=== PATIENT | male | born 1965 | race African-American/Black ===

== ENCOUNTER 2017-01-14 02:34 | Inpatient (IN) | payer MEDICAID ==
[~2017-01-14] VITALS: Ht 180.3 cm; Wt 103.1 kg
[2017-01-14 04:46] VITALS: BP 124/86
[2017-01-14] MEDS ORDERED: INFLUENZA VIRUS VACCINE QVS 2016-17 (3YR+)/PF 60 MCG/0.5 ML SYRINGE IM ONE (07:00)
[2017-01-14] MEDS ORDERED: MIRT30 PO (08:19)
[2017-01-14 08:22] VITALS: BP 115/86
[2017-01-14] MEDS: NICOTINE 21 MG/24 HOUR PATCH TD SCH (09:43)
[2017-01-14] MEDS: SULFAMETHOX/TRIMETH DS 800-160 MG/TABLET PO SCH ×2 (09:43→17:07)
[2017-01-14] MEDS: CEPHALEXIN MONOHYDRATE 500 MG CAPSULE PO SCH ×4 (09:43→20:20)
[2017-01-14] MEDS: LORazepam 1 MG TABLET PO PRN ×2 (11:45→17:36)
[2017-01-14 16:19] VITALS: BP 129/73
[2017-01-14] MEDS: QUEtiapine FUMARATE 100 MG TABLET PO PRN (18:37)
[2017-01-14] MEDS: OLANZapine 5 MG TABLET PO SCH (20:20)
[2017-01-15 07:46] LABS: BASOPHILS % (AUTO) 0.4 % (0.0-2.0); EOSINOPHILS % (AUTO) 4.6 % (1.0-6.0); HEMATOCRIT 47.9 % (41-53); HEMOGLOBIN 15.5 g/dL (13.5-17.5); LYMPHOCYTES # (AUTO) 2.4 K/uL (1.0-4.8); LYMPHOCYTES % (AUTO) 21.5 % (22.0-44.0); MEAN CORPUSCULAR HEMOGLOBIN 29.2 pg (26.0-34.0); MEAN CORPUSCULAR HGB CONC 32.3 G/dL (31.0-37.0); MEAN CORPUSCULAR VOLUME 90 fL (80-100); MONOCYTES # (AUTO) 0.7 K/uL (0.1-1.0); MONOCYTES % (AUTO) 6.2 % (2.0-9.0); NEUTROPHILS # (AUTO) 7.6 K/uL (1.8-7.7); NEUTROPHILS % (AUTO) 67.3 % (40.0-70.0); PLATELET COUNT (AUTO) 206 K/uL (150-450); RED CELL DISTRIBUTION WIDTH 15.3 % (11.5-14.5); WHITE BLOOD COUNT (AUTO) 11.3 K/uL (4.5-11.0)
[2017-01-15] MEDS: LORazepam 1 MG TABLET PO PRN (08:56)
[2017-01-15] MEDS: NICOTINE 21 MG/24 HOUR PATCH TD SCH (08:56)
[2017-01-15] MEDS: CEPHALEXIN MONOHYDRATE 500 MG CAPSULE PO SCH (08:58)
[2017-01-15] MEDS: SULFAMETHOX/TRIMETH DS 800-160 MG/TABLET PO SCH (08:58)
[2017-01-15] MEDS ORDERED: FLUoxetine HCL 20 MG CAPSULE PO SCH (09:00)
[2017-01-15 13:36] VITALS: BP 111/59
[2017-01-15 16:29] VITALS: BP 100/73
[2017-01-15] MEDS: QUEtiapine FUMARATE 100 MG TABLET PO PRN (20:34)
[2017-01-15] MEDS: OLANZapine 5 MG TABLET PO SCH (20:35)
[2017-01-16 00:05] VITALS: BP 104/66
[2017-01-16] MEDS: LORazepam 1 MG TABLET PO PRN ×2 (07:51→20:22)
[2017-01-16] MEDS: QUEtiapine FUMARATE 100 MG TABLET PO PRN (07:51)
[2017-01-16 08:38] VITALS: BP 125/92
[2017-01-16] MEDS: FLUoxetine HCL 20 MG CAPSULE PO SCH (08:56)
[2017-01-16] MEDS: NICOTINE 21 MG/24 HOUR PATCH TD SCH (08:56)
[2017-01-16 16:07] VITALS: BP 149/90
[2017-01-16 17:00] VITALS: BP 130/82
[2017-01-16] MEDS ORDERED: ACETAMINOPHEN 325 MG TABLET PO PRN (17:15)
[2017-01-16] MEDS: OLANZapine 5 MG TABLET PO SCH (20:22)
[2017-01-16 20:26] VITALS: BP 134/80
[2017-01-17 06:36] VITALS: BP 116/75
[2017-01-17 08:11] VITALS: BP 157/94
[2017-01-17] MEDS: NICOTINE 21 MG/24 HOUR PATCH TD SCH (08:59)
[2017-01-17] MEDS: FLUoxetine HCL 20 MG CAPSULE PO SCH (09:00)
[2017-01-17] MEDS: OLANZapine 5 MG TABLET PO SCH ×2 (09:00→20:28)
[2017-01-17 10:17] VITALS: BP 130/89
[2017-01-17] MEDS: LORazepam 1 MG TABLET PO PRN ×2 (13:52→20:50)
[2017-01-17 16:34] VITALS: BP 133/79
[2017-01-17] MEDS: QUEtiapine FUMARATE 100 MG TABLET PO PRN (20:50)
[2017-01-18 06:28] VITALS: BP 128/87
[2017-01-18] MEDS: NICOTINE 21 MG/24 HOUR PATCH TD SCH (08:52)
[2017-01-18] MEDS: FLUoxetine HCL 20 MG CAPSULE PO SCH (08:52)
[2017-01-18] MEDS: OLANZapine 5 MG TABLET PO SCH ×2 (08:52→21:18)
[2017-01-18 16:09] VITALS: BP 137/85
[2017-01-18] MEDS: LORazepam 1 MG TABLET PO PRN (21:18)
[2017-01-18] MEDS: QUEtiapine FUMARATE 100 MG TABLET PO PRN (21:19)
[2017-01-19 03:57] VITALS: BP 123/61
[2017-01-19 08:47] VITALS: BP 141/75
[2017-01-19] MEDS: FLUoxetine HCL 20 MG CAPSULE PO SCH (09:58)
[2017-01-19] MEDS: NICOTINE 21 MG/24 HOUR PATCH TD SCH (09:58)
[2017-01-19] MEDS: OLANZapine 5 MG TABLET PO SCH ×2 (09:58→20:41)
[2017-01-19 16:10] VITALS: BP 118/72
[2017-01-19] MEDS: QUEtiapine FUMARATE 100 MG TABLET PO PRN (20:41)
[2017-01-19] MEDS: LORazepam 1 MG TABLET PO PRN (20:41)
[2017-01-20 06:54] VITALS: BP 113/63
[2017-01-20] MEDS ORDERED: DiphenhydrAMINE HCL 50 MG/ML VIAL IM ONE (09:15)
[2017-01-20] MEDS: NICOTINE 21 MG/24 HOUR PATCH TD SCH (09:19)
[2017-01-20] MEDS: FLUoxetine HCL 20 MG CAPSULE PO SCH (09:20)
[2017-01-20] MEDS: OLANZapine 5 MG TABLET PO SCH (09:20)
[2017-01-20 09:58] VITALS: BP 118/76
[2017-01-20] MEDS ORDERED: BENZTROPINE MESYLATE 2 MG TABLET PO ONE (11:15)
[2017-01-20] MEDS ORDERED: BENZTROPINE MESYLATE 2 MG TABLET ONE (11:17)
[2017-01-20 16:21] VITALS: BP 152/91
[2017-01-20] MEDS: BENZTROPINE MESYLATE 2 MG TABLET PO SCH (17:00)
[2017-01-20] MEDS ORDERED: FLUO-191 PO (18:50)
[2017-01-20] MEDS ORDERED: LORA1TAB3 PO (18:50)
[2017-01-20] MEDS ORDERED: QUET100T PO (18:50)
[2017-01-20] MEDS ORDERED: BENZ2TAB10 PO (18:50)
[2017-01-20 22:38] VITALS: BP 139/72
[2017-01-20] MEDS: LORazepam 1 MG TABLET PO PRN (22:38)
[2017-01-21 07:02] VITALS: BP 125/80
[2017-01-21] MEDS: NICOTINE 21 MG/24 HOUR PATCH TD SCH (08:40)
[2017-01-21] MEDS: FLUoxetine HCL 20 MG CAPSULE PO SCH (08:40)
[2017-01-21] MEDS: BENZTROPINE MESYLATE 2 MG TABLET PO SCH (08:40)
[2017-01-21 08:45] VITALS: BP 125/81
[2017-01-21 09:51] LABS: ALANINE AMINOTRANSFERASE 60 U/L (12-78); ALBUMIN 3.4 g/dL (3.4-5.0); ANION GAP 6 mmol/L (8-16); ASPARTATE AMINOTRANSFERASE 42 U/L (15-37); BILIRUBIN,TOTAL 0.2 mg/dL (0.1-1.0); CALCIUM, TOTAL 8.6 mg/dL (8.8-10.5); CARBON DIOXIDE 32 mmol/L (22-29); CHLORIDE 107 mmol/L (98-107); CREATININE 1.18 mg/dL (0.60-1.30); GLOMERULAR FILTR. RATE CALC > 60 mL/min (>60); POTASSIUM 4.8 mmol/L (3.5-5.1); SODIUM SERUM 145 mmol/L (136-145); TOTAL PROTEIN, SERUM 7.3 g/dL (6.4-8.2); UREA NITROGEN, BLOOD 17 mg/dL (7-18)
== END 2017-01-21 11:35 | disposition home or self-care (01) | DRG 750 ==
LOC: B2S 03:50 → EDSTATUS 04:39
PROVIDERS: ADMIT Psychiatry & Neurology Psychiatry; ATTEND Psychiatry & Neurology Psychiatry
DX: F25.0 Schizoaffective disorder, bipolar type (principal); R45.851 Suicidal ideations; F14.20 Cocaine dependence, uncomplicated; R13.10 Dysphagia, unspecified; M54.9 Dorsalgia, unspecified; R07.9 Chest pain, unspecified; F15.90 Other stimulant use, unspecified, uncomplicated; R45.87 Impulsiveness; F17.200 Nicotine dependence, unspecified, uncomplicated; K21.9 Gastro-esophageal reflux disease without esophagitis; Z59.0 Homelessness; Z80.42 Family history of malignant neoplasm of prostate; Z82.3 Family history of stroke; Z72.89 Other problems related to lifestyle; Z88.8 Allergy status to other drugs, medicaments and biological substances; Z88.1 Allergy status to other antibiotic agents; Z91.5 Personal history of self-harm; Z79.899 Other long term (current) drug therapy; Z28.21 Immunization not carried out because of patient refusal
CPT/HCPCS: 93005; J1200

== ENCOUNTER 2017-01-20 18:19 | Emergency (ER) | payer MEDICAID ==
[~2017-01-20] VITALS: Ht 177.8 cm; Wt 104.5 kg
[~2017-01-20 18:19] MED LIST: MIRT30 PO
[2017-01-20] MEDS ORDERED: FLUO-191 PO (18:50)
[2017-01-20] MEDS ORDERED: LORA1TAB3 PO (18:50)
[2017-01-20] MEDS ORDERED: BENZ2TAB10 PO (18:50)
[2017-01-20] MEDS ORDERED: QUET100T PO (18:50)
[2017-01-20] MEDS ORDERED: KETOROLAC TROMETHAMINE 60 MG/2 ML VIAL IM ONE (20:15)
[2017-01-20 20:59] VITALS: BP 139/89
== END 2017-01-20 22:11 | disposition home or self-care (01) ==
LOC: EMS 18:20
DX: J02.8 Acute pharyngitis due to other specified organisms (principal); F17.210 Nicotine dependence, cigarettes, uncomplicated; F12.10 Cannabis abuse, uncomplicated; F31.9 Bipolar disorder, unspecified; Z88.1 Allergy status to other antibiotic agents
CPT/HCPCS: 87430; 96372; 99283; J1885

== ENCOUNTER 2017-02-22 23:12 | Emergency (ER) | payer MEDICAID ==
[~2017-02-22] VITALS: Ht 177.8 cm; Wt 120.0 kg
[~2017-02-22 23:12] MED LIST changes: +FLUO-191 PO; -MIRT30 PO
[2017-02-22 23:37] LABS: BASOPHILS # (AUTO) 0.04 K/uL (0.00-0.20); BASOPHILS % (AUTO) 0.3 % (0.0-2.0); EOSINOPHILS # (AUTO) 0.14 K/uL (0.00-0.70); EOSINOPHILS % (AUTO) 1.11 % (1.0-6.0); HEMATOCRIT 45.1 % (41-53); HEMOGLOBIN 14.9 g/dL (13.5-17.5); LYMPHOCYTES # (AUTO) 1.8 K/uL (1.0-4.8); LYMPHOCYTES % (AUTO) 13.8 % (22.0-44.0); MEAN CORPUSCULAR VOLUME 91 fL (80-100); MONOCYTES # (AUTO) 1.1 K/uL (0.1-1.0); MONOCYTES % (AUTO) 8.7 % (2.0-9.0); NEUTROPHILS # (AUTO) 9.7 K/uL (1.8-7.7); NEUTROPHILS % (AUTO) 76.1 % (40.0-70.0); PLATELET COUNT (AUTO) 231 K/uL (150-450); RED BLOOD CELL COUNT(AUTO) 4.96 MIL/uL (4.50-5.90); RED CELL DISTRIBUTION WIDTH 16.6 % (11.5-14.5); WHITE BLOOD COUNT (AUTO) 12.8 K/uL (4.5-11.0)
[2017-02-22 23:42] LABS: INR 1.1 (0.9-1.1); PROTHROMBIN TIME 11.3 SEC (9.4-11.6)
[2017-02-22 23:44] LABS: ANION GAP 10 mmol/L (8-16); CARBON DIOXIDE 26 mmol/L (22-29); CHLORIDE 102 mmol/L (98-107); CREATININE 1.24 mg/dL (0.60-1.30); GLOMERULAR FILTR. RATE CALC > 60 mL/min (>60); POTASSIUM 4.3 mmol/L (3.5-5.1); SODIUM SERUM 138 mmol/L (136-145); UREA NITROGEN, BLOOD 13 mg/dL (7-18)
[2017-02-22] MEDS ORDERED: MORPHINE SULFATE 4 MG/ML SYRINGE IVP ONE (23:45)
[2017-02-22] MEDS ORDERED: LORazepam 2 MG/ML VIAL IVP ONE (23:45)
[2017-02-23 00:10] LABS: ALANINE AMINOTRANSFERASE 72 U/L (12-78); ALBUMIN 4.3 g/dL (3.4-5.0); ASPARTATE AMINOTRANSFERASE 86 U/L (15-37); BILIRUBIN,TOTAL 0.5 mg/dL (0.1-1.0); CREATINE KINASE MB 6.1 ng/mL (0-5); TOTAL PROTEIN, SERUM 7.7 g/dL (6.4-8.2)
[2017-02-23 00:11] LABS: CREATINE KINASE, TOTAL 1594 U/L (39-308)
[2017-02-23 00:25] LABS: B-TYPE NATRIURETIC PEPTIDE 11 pg/mL (0-100)
[2017-02-23 02:42] LABS: APPEARANCE,URINE CLEAR (CLEAR); GLUCOSE, URINE (UA) NEGATIVE (NEGATIVE); KETONES,URINE NEGATIVE (NEGATIVE); LEUKOCYTE ESTERASE ,URINE NEGATIVE (NEGATIVE); OCCULT BLOOD,URINE NEGATIVE (NEGATIVE); PROTEIN,URINE TRACE (NEGATIVE)
[2017-02-23 02:43] LABS: ADD UA MICROSCOPIC NO
[2017-02-23 03:09] VITALS: BP 130/89
== END 2017-02-23 03:10 | disposition home or self-care (01) ==
LOC: EMS 23:14
DX: R07.9 Chest pain, unspecified (principal); F14.10 Cocaine abuse, uncomplicated; F15.10 Other stimulant abuse, uncomplicated; F11.10 Opioid abuse, uncomplicated; F17.210 Nicotine dependence, cigarettes, uncomplicated; F12.90 Cannabis use, unspecified, uncomplicated; Z88.1 Allergy status to other antibiotic agents
CPT/HCPCS: 36415; 71010; 80053; 80307; 81003; 82550; 82553; 83880; 84484; 85025; 85610; 85730; 93005; 96374; 96375; 99285; J2060; J2270

== ENCOUNTER 2017-09-12 20:27 | Emergency (ER) | payer MEDICAID ==
[~2017-09-12] VITALS: Ht 180.3 cm; Wt 118.2 kg
[2017-09-12 21:13] LABS: BASOPHILS % (AUTO) 1.3 % (0.0-2.0); EOSINOPHILS # (AUTO) 0.21 K/uL (0.00-0.70); EOSINOPHILS % (AUTO) 2.79 % (1.0-6.0); HEMATOCRIT 40.5 % (41-53); HEMOGLOBIN 13.6 g/dL (13.5-17.5); LYMPHOCYTES # (AUTO) 2.1 K/uL (1.0-4.8); LYMPHOCYTES % (AUTO) 28.6 % (22.0-44.0); MEAN CORPUSCULAR HEMOGLOBIN 30.5 pg (26.0-34.0); MEAN CORPUSCULAR HGB CONC 33.6 G/dL (31.0-37.0); MEAN CORPUSCULAR VOLUME 91 fL (80-100); MONOCYTES # (AUTO) 0.7 K/uL (0.1-1.0); MONOCYTES % (AUTO) 9.7 % (2.0-9.0); NEUTROPHILS # (AUTO) 4.3 K/uL (1.8-7.7); NEUTROPHILS % (AUTO) 57.7 % (40.0-70.0); PLATELET COUNT (AUTO) 185 K/uL (150-450); RED BLOOD CELL COUNT(AUTO) 4.47 MIL/uL (4.50-5.90); RED CELL DISTRIBUTION WIDTH 14.8 % (11.5-14.5); WHITE BLOOD COUNT (AUTO) 7.4 K/uL (4.5-11.0)
[2017-09-12 21:25] LABS: ANION GAP 4 mmol/L (8-16); CALCIUM, TOTAL 8.8 mg/dL (8.8-10.5); CARBON DIOXIDE 29 mmol/L (22-29); CHLORIDE 106 mmol/L (98-107); CREATININE 0.95 mg/dL (0.60-1.30); GLOMERULAR FILTR. RATE CALC > 60 mL/min (>60); POTASSIUM 3.9 mmol/L (3.5-5.1); SODIUM SERUM 139 mmol/L (136-145); UREA NITROGEN, BLOOD 13 mg/dL (7-18)
[2017-09-12 21:28] LABS: PROTHROMBIN TIME 10.5 SEC (9.4-11.6)
[2017-09-12] MEDS ORDERED: ONDANSETRON HCL 4 MG/2 ML VIAL IVP ONE (21:30)
[2017-09-12] MEDS ORDERED: HYDROmorphone 2 MG/ML SYRINGE IVP ONE ×2 (21:30→22:30)
[2017-09-12 21:41] LABS: B-TYPE NATRIURETIC PEPTIDE < 5 pg/mL (0-100)
[2017-09-12 21:50] LABS: ALANINE AMINOTRANSFERASE 37 U/L (12-78); ALBUMIN 3.5 g/dL (3.4-5.0); ASPARTATE AMINOTRANSFERASE 23 U/L (15-37); BILIRUBIN,TOTAL 0.1 mg/dL (0.1-1.0); CREATINE KINASE, TOTAL 186 U/L (39-308); TOTAL PROTEIN, SERUM 6.6 g/dL (6.4-8.2)
[2017-09-12 21:51] LABS: CREATINE KINASE MB < 0.5 ng/mL (0-5)
[2017-09-12] MEDS ORDERED: BARIUM SULFATE 0.1% SUSPENSION 450 ML BOTTLE PO ONE (22:15)
[2017-09-12] MEDS ORDERED: LORazepam 2 MG/ML VIAL IVP ONE (22:45)
[2017-09-12] MEDS ORDERED: IOVERSOL 350 MG/ML 150 ML VIAL ONE (23:27)
[2017-09-12 23:44] LABS: APPEARANCE,URINE CLEAR (CLEAR); GLUCOSE, URINE (UA) NEGATIVE (NEGATIVE); KETONES,URINE NEGATIVE (NEGATIVE); LEUKOCYTE ESTERASE ,URINE NEGATIVE (NEGATIVE); OCCULT BLOOD,URINE NEGATIVE (NEGATIVE); PH,URINE 5.5 (5.0-8.0); PROTEIN,URINE NEGATIVE (NEGATIVE)
[2017-09-12 23:45] LABS: ADD UA MICROSCOPIC NO
[2017-09-13] MEDS ORDERED: HYDROmorphone 2 MG/ML SYRINGE IVP ONE (00:15)
[2017-09-13] MEDS ORDERED: ONDANSETRON HCL 4 MG/2 ML VIAL IVP ONE (02:45)
[2017-09-13 02:56] LABS: BASOPHILS # (AUTO) 0.06 K/uL (0.00-0.20); BASOPHILS % (AUTO) 0.7 % (0.0-2.0); EOSINOPHILS # (AUTO) 0.06 K/uL (0.00-0.70); EOSINOPHILS % (AUTO) 0.75 % (1.0-6.0); HEMOGLOBIN 14.1 g/dL (13.5-17.5); LYMPHOCYTES # (AUTO) 1.8 K/uL (1.0-4.8); LYMPHOCYTES % (AUTO) 21.3 % (22.0-44.0); MEAN CORPUSCULAR HEMOGLOBIN 30.3 pg (26.0-34.0); MEAN CORPUSCULAR HGB CONC 33.5 G/dL (31.0-37.0); MEAN CORPUSCULAR VOLUME 90 fL (80-100); MONOCYTES # (AUTO) 0.6 K/uL (0.1-1.0); MONOCYTES % (AUTO) 6.7 % (2.0-9.0); NEUTROPHILS # (AUTO) 5.8 K/uL (1.8-7.7); NEUTROPHILS % (AUTO) 70.6 % (40.0-70.0); PLATELET COUNT (AUTO) 189 K/uL (150-450); RED BLOOD CELL COUNT(AUTO) 4.65 MIL/uL (4.50-5.90); RED CELL DISTRIBUTION WIDTH 14.5 % (11.5-14.5); WHITE BLOOD COUNT (AUTO) 8.2 K/uL (4.5-11.0)
[2017-09-13 03:50] VITALS: BP 139/88
== END 2017-09-13 03:53 | disposition home or self-care (01) ==
LOC: EMS 20:29
DX: R10.32 Left lower quadrant pain (principal); F17.210 Nicotine dependence, cigarettes, uncomplicated; F12.90 Cannabis use, unspecified, uncomplicated; F14.90 Cocaine use, unspecified, uncomplicated; Z87.19 Personal history of other diseases of the digestive system; Z88.1 Allergy status to other antibiotic agents
CPT/HCPCS: 36415; 71010; 74177; 80053; 81003; 82550; 82553; 83690; 83880; 84484; 85025; 85610; 85730; 86850; 86900; 86901; 93005; 96374; 96375; 96376; 99285; G0480; J1170 ×2; J2060; J2405 ×2; Q9967; Z7610

== ENCOUNTER 2017-11-09 18:14 | Emergency (ER) | payer MEDICAID ==
[~2017-11-09] VITALS: Ht 180.3 cm; Wt 122.5 kg
[2017-11-09] MEDS ORDERED: QUET100T PO (18:21)
[2017-11-09] MEDS ORDERED: PALI39DI IM (18:21)
[2017-11-09 18:33] LABS: BASOPHILS # (AUTO) 0.01 K/uL (0.00-0.20); BASOPHILS % (AUTO) 0.1 % (0.0-2.0); EOSINOPHILS # (AUTO) 0.17 K/uL (0.00-0.70); EOSINOPHILS % (AUTO) 1.78 % (1.0-6.0); HEMATOCRIT 42.4 % (41-53); HEMOGLOBIN 14.6 g/dL (13.5-17.5); LYMPHOCYTES # (AUTO) 1.7 K/uL (1.0-4.8); LYMPHOCYTES % (AUTO) 17.1 % (22.0-44.0); MEAN CORPUSCULAR HEMOGLOBIN 30.6 pg (26.0-34.0); MEAN CORPUSCULAR HGB CONC 34.4 G/dL (31.0-37.0); MEAN CORPUSCULAR VOLUME 89 fL (80-100); MONOCYTES # (AUTO) 0.5 K/uL (0.1-1.0); MONOCYTES % (AUTO) 5.3 % (2.0-9.0); NEUTROPHILS # (AUTO) 7.4 K/uL (1.8-7.7); NEUTROPHILS % (AUTO) 75.7 % (40.0-70.0); PLATELET COUNT (AUTO) 201 K/uL (150-450); RED BLOOD CELL COUNT(AUTO) 4.77 MIL/uL (4.50-5.90); RED CELL DISTRIBUTION WIDTH 14.9 % (11.5-14.5)
[2017-11-09 18:46] LABS: ANION GAP 3 mmol/L (8-16); CALCIUM, TOTAL 9.3 mg/dL (8.8-10.5); CARBON DIOXIDE 31 mmol/L (22-29); CHLORIDE 107 mmol/L (98-107); CREATININE 1.11 mg/dL (0.60-1.30); GLOMERULAR FILTR. RATE CALC > 60 mL/min (>60); GLUCOSE,RANDOM 111 mg/dL (70-110); POTASSIUM 4.2 mmol/L (3.5-5.1); SODIUM SERUM 141 mmol/L (136-145); UREA NITROGEN, BLOOD 15 mg/dL (7-18)
[2017-11-09 18:52] LABS: ALANINE AMINOTRANSFERASE 41 U/L (12-78); ALBUMIN 3.9 g/dL (3.4-5.0); ALKALINE PHOSPHATASE 102 U/L (46-116); ASPARTATE AMINOTRANSFERASE 20 U/L (15-37); BILIRUBIN,TOTAL 0.2 mg/dL (0.1-1.0); TOTAL PROTEIN, SERUM 7.8 g/dL (6.4-8.2)
[2017-11-09 23:32] VITALS: BP 135/89
== END 2017-11-09 23:58 | disposition home or self-care (01) ==
LOC: EMS 18:15
DX: J06.9 Acute upper respiratory infection, unspecified (principal); R60.9 Edema, unspecified; M79.89 Other specified soft tissue disorders; F17.210 Nicotine dependence, cigarettes, uncomplicated; F12.90 Cannabis use, unspecified, uncomplicated; F11.90 Opioid use, unspecified, uncomplicated; Z88.1 Allergy status to other antibiotic agents
CPT/HCPCS: 93005; 99285

== ENCOUNTER 2018-02-16 02:33 | Emergency (ER) | payer MEDICAID ==
[~2018-02-16] VITALS: Ht 180.3 cm; Wt 100.0 kg
[~2018-02-16 02:33] MED LIST changes: -FLUO-191 PO; +PALI39DI IM; +QUET100T PO
[2018-02-16 03:08] LABS: BASOPHILS % (AUTO) 0.9 % (0.0-2.0); EOSINOPHILS % (AUTO) 0.4 % (1.0-6.0); HEMOGLOBIN 15.9 g/dL (13.5-17.5); LYMPHOCYTES # (AUTO) 1.9 K/uL (1.0-4.8); LYMPHOCYTES % (AUTO) 12.8 % (22.0-44.0); MEAN CORPUSCULAR HEMOGLOBIN 29.8 pg (26.0-34.0); MEAN CORPUSCULAR HGB CONC 33.9 G/dL (31.0-37.0); MEAN CORPUSCULAR VOLUME 88 fL (80-100); MONOCYTES # (AUTO) 1.3 K/uL (0.1-1.0); MONOCYTES % (AUTO) 8.4 % (2.0-9.0); NEUTROPHILS # (AUTO) 11.6 K/uL (1.8-7.7); NEUTROPHILS % (AUTO) 77.5 % (40.0-70.0); RED BLOOD CELL COUNT(AUTO) 5.34 MIL/uL (4.50-5.90); RED CELL DISTRIBUTION WIDTH 15.1 % (11.5-14.5)
[2018-02-16 03:12] LABS: ANION GAP 12 mmol/L (8-16); CALCIUM, TOTAL 10.2 mg/dL (8.8-10.5); CARBON DIOXIDE 29 mmol/L (22-29); CHLORIDE 105 mmol/L (98-107); CREATININE 1.46 mg/dL (0.60-1.30); GLOMERULAR FILTR. RATE CALC > 60 mL/min (>60); GLUCOSE,RANDOM 92 mg/dL (70-110); POTASSIUM 4.1 mmol/L (3.5-5.1); SODIUM SERUM 146 mmol/L (136-145); UREA NITROGEN, BLOOD 17 mg/dL (7-18)
[2018-02-16 03:18] LABS: ALANINE AMINOTRANSFERASE 40 U/L (12-78); ALBUMIN 4.8 g/dL (3.4-5.0); ALKALINE PHOSPHATASE 94 U/L (46-116); ASPARTATE AMINOTRANSFERASE 53 U/L (15-37); BILIRUBIN,TOTAL 0.6 mg/dL (0.1-1.0); TOTAL PROTEIN, SERUM 8.9 g/dL (6.4-8.2)
[2018-02-16 03:33] LABS: PLATELET COUNT (AUTO) 214 K/uL (150-450)
[2018-02-16 03:34] LABS: PLATELET MORPHOLOGY COMMENT GIANT PLTS PRESENT
[2018-02-16 04:40] LABS: AMPHET/METH SCREEN,URINE POSITIVE (NEGATIVE); BARBITURATE SCREEN, URINE NEGATIVE (NEGATIVE); BENZODIAZEPINES SCREEN,URINE NEGATIVE (NEGATIVE); CANNABINOID SCREEN,URINE NEGATIVE (NEGATIVE); COCAINE SCREEN,URINE POSITIVE (NEGATIVE); METHADONE SCREEN, URINE NEGATIVE (NEGATIVE); OPIATE SCREEN,URINE NEGATIVE (NEGATIVE); PHENCYCLIDINE SCREEN,URINE NEGATIVE (NEGATIVE)
[2018-02-16 05:12] VITALS: BP 136/89
== END 2018-02-16 05:25 | disposition home or self-care (01) ==
LOC: EMS 02:34
DX: F24 Shared psychotic disorder (principal); G47.62 Sleep related leg cramps; F19.90 Other psychoactive substance use, unspecified, uncomplicated; F31.9 Bipolar disorder, unspecified; F17.210 Nicotine dependence, cigarettes, uncomplicated; F12.90 Cannabis use, unspecified, uncomplicated; F14.90 Cocaine use, unspecified, uncomplicated; Z88.1 Allergy status to other antibiotic agents
CPT/HCPCS: 36415; 80053; 80307; 85025; 99285; G0480

== ENCOUNTER 2018-06-25 18:00 | Inpatient (IN) | payer MEDICAID ==
[~2018-06-25] VITALS: Ht 172.7 cm; Wt 120.5 kg
[~2018-06-25 18:00] MED LIST changes: +BENZ0.5T44 PO; +DIVA-78 PO; +DOCU250C91 PO; +ESCI10TA PO; +LOSA50TA37 PO; -PALI39DI IM; -QUET100T PO; +QUET200T PO; +WARF10TA23 PO
[2018-06-25 19:33] LABS: BASOPHILS % (AUTO) 0.9 % (0.0-2.0); EOSINOPHILS % (AUTO) 1.4 % (1.0-6.0); HEMATOCRIT 43.2 % (41-53); LYMPHOCYTES # (AUTO) 2.3 K/uL (1.0-4.8); LYMPHOCYTES % (AUTO) 24.7 % (22.0-44.0); MEAN CORPUSCULAR HEMOGLOBIN 30.5 pg (26.0-34.0); MEAN CORPUSCULAR HGB CONC 34.8 G/dL (31.0-37.0); MEAN CORPUSCULAR VOLUME 88 fL (80-100); MONOCYTES # (AUTO) 0.6 K/uL (0.1-1.0); MONOCYTES % (AUTO) 6.9 % (2.0-9.0); NEUTROPHILS # (AUTO) 6.1 K/uL (1.8-7.7); NEUTROPHILS % (AUTO) 66.1 % (40.0-70.0); PLATELET COUNT (AUTO) 195 K/uL (150-450); RED BLOOD CELL COUNT(AUTO) 4.93 MIL/uL (4.50-5.90); RED CELL DISTRIBUTION WIDTH 15.1 % (11.5-14.5)
[2018-06-25 19:44] LABS: ANION GAP 9 mmol/L (8-16); CALCIUM, TOTAL 9.4 mg/dL (8.8-10.5); CARBON DIOXIDE 26 mmol/L (22-29); CHLORIDE 106 mmol/L (98-107); CREATININE 0.83 mg/dL (0.60-1.30); GLOMERULAR FILTR. RATE CALC > 60 mL/min (>60); GLUCOSE,RANDOM 108 mg/dL (70-110); POTASSIUM 4.2 mmol/L (3.5-5.1); SODIUM SERUM 141 mmol/L (136-145); UREA NITROGEN, BLOOD 11 mg/dL (7-18)
[2018-06-25] MEDS ORDERED: MORPHINE SULFATE 4 MG/ML SYRINGE IVP ONE ×2 (19:45→22:45)
[2018-06-25] MEDS ORDERED: SODIUM CHLORIDE 0.9% 1,000 ML IV ONE (19:45)
[2018-06-25] MEDS ORDERED: ONDANSETRON HCL 4 MG/2 ML VIAL IVP ONE (19:45)
[2018-06-25 19:50] LABS: ALANINE AMINOTRANSFERASE 20 U/L (12-78); ALBUMIN 3.9 g/dL (3.4-5.0); ALKALINE PHOSPHATASE 81 U/L (46-116); AMYLASE 58 U/L (25-115); ASPARTATE AMINOTRANSFERASE 9 U/L (15-37); BILIRUBIN,TOTAL 0.2 mg/dL (0.1-1.0); TOTAL PROTEIN, SERUM 7.6 g/dL (6.4-8.2)
[2018-06-25 20:03] LABS: INR 1.6 (0.9-1.1); PROTHROMBIN TIME 16.5 SEC (9.4-11.6)
[2018-06-25 22:24] LABS: EOSINOPHILS % (AUTO) 1.2 % (1.0-6.0); HEMATOCRIT 43.8 % (41-53); LYMPHOCYTES # (AUTO) 2.8 K/uL (1.0-4.8); LYMPHOCYTES % (AUTO) 30.3 % (22.0-44.0); MEAN CORPUSCULAR HEMOGLOBIN 30.2 pg (26.0-34.0); MEAN CORPUSCULAR HGB CONC 34.4 G/dL (31.0-37.0); MEAN CORPUSCULAR VOLUME 88 fL (80-100); MONOCYTES # (AUTO) 0.6 K/uL (0.1-1.0); NEUTROPHILS # (AUTO) 5.7 K/uL (1.8-7.7); NEUTROPHILS % (AUTO) 61.5 % (40.0-70.0); PLATELET COUNT (AUTO) 198 K/uL (150-450); RED BLOOD CELL COUNT(AUTO) 4.98 MIL/uL (4.50-5.90); RED CELL DISTRIBUTION WIDTH 14.8 % (11.5-14.5)
[2018-06-25] MEDS ORDERED: QUEtiapine FUMARATE 100 MG TABLET PO ONE (22:45)
[2018-06-25] MEDS ORDERED: MORPHINE SULFATE 4 MG/ML SYRINGE IVP PRN (23:00)
[2018-06-25] MEDS ORDERED: 0.9% SODIUM CHLORIDE 10 ML SYRINGE IVP PRN (23:00)
[2018-06-26 09:41] VITALS: BP 128/85
[2018-06-26 11:38] VITALS: BP 119/75
[2018-06-26] MEDS ORDERED: ONDANSETRON HCL 4 MG/2 ML VIAL IVP PRN (13:30)
[2018-06-26 14:09] LABS: HEMATOCRIT 44.8 % (41-53); HEMOGLOBIN 15.1 g/dL (13.5-17.5)
[2018-06-26] MEDS: BENZTROPINE MESYLATE 0.5 MG TABLET PO SCH ×2 (14:38→19:55)
[2018-06-26] MEDS: PANTOPRAZOLE SODIUM 40 MG/VIAL IVP SCH (14:38)
[2018-06-26] MEDS: ESCITALOPRAM OXALATE 10 MG TABLET PO SCH (14:38)
[2018-06-26] MEDS: LOSARTAN POTASSIUM 50 MG TABLET PO SCH (14:38)
[2018-06-26] MEDS: MORPHINE SULFATE 2 MG/ML SYRINGE IVP PRN ×2 (14:38→18:50)
[2018-06-26 16:54] VITALS: BP 115/72
[2018-06-26] MEDS: QUEtiapine FUMARATE 200 MG TABLET PO SCH (19:55)
[2018-06-26] MEDS: ZOLPIDEM TARTRATE 5 MG TABLET PO PRN (19:55)
[2018-06-26] MEDS: DIVALPROEX SODIUM 500 MG DR TABLET PO SCH (19:55)
[2018-06-26 19:56] VITALS: BP 103/68
[2018-06-26 21:31] LABS: HEMATOCRIT 41.8 % (41-53); HEMOGLOBIN 14.3 g/dL (13.5-17.5)
[2018-06-26 23:22] VITALS: BP 104/67
[2018-06-27] VITALS (7 sets, daily range): BP systolic 104–127; BP diastolic 68–80
[2018-06-27 06:14] LABS: BASOPHILS % (AUTO) 0.3 % (0.0-2.0); EOSINOPHILS % (AUTO) 2.6 % (1.0-6.0); HEMATOCRIT 43.6 % (41-53); HEMOGLOBIN 14.6 g/dL (13.5-17.5); LYMPHOCYTES # (AUTO) 2.4 K/uL (1.0-4.8); LYMPHOCYTES % (AUTO) 29.9 % (22.0-44.0); MEAN CORPUSCULAR HEMOGLOBIN 30.3 pg (26.0-34.0); MEAN CORPUSCULAR HGB CONC 33.5 G/dL (31.0-37.0); MEAN CORPUSCULAR VOLUME 90 fL (80-100); MONOCYTES # (AUTO) 0.6 K/uL (0.1-1.0); MONOCYTES % (AUTO) 7.4 % (2.0-9.0); NEUTROPHILS # (AUTO) 4.8 K/uL (1.8-7.7); NEUTROPHILS % (AUTO) 59.8 % (40.0-70.0); PLATELET COUNT (AUTO) 180 K/uL (150-450); RED BLOOD CELL COUNT(AUTO) 4.83 MIL/uL (4.50-5.90); RED CELL DISTRIBUTION WIDTH 14.7 % (11.5-14.5)
[2018-06-27 06:21] LABS: ANION GAP 6 mmol/L (8-16); CALCIUM, TOTAL 8.6 mg/dL (8.8-10.5); CARBON DIOXIDE 29 mmol/L (22-29); CHLORIDE 104 mmol/L (98-107); CREATININE 0.99 mg/dL (0.60-1.30); GLOMERULAR FILTR. RATE CALC > 60 mL/min (>60); GLUCOSE,RANDOM 94 mg/dL (70-110); POTASSIUM 4.3 mmol/L (3.5-5.1); SODIUM SERUM 139 mmol/L (136-145); UREA NITROGEN, BLOOD 13 mg/dL (7-18)
[2018-06-27 06:22] LABS: INR 1.3 (0.9-1.1)
[2018-06-27] MEDS: LOSARTAN POTASSIUM 50 MG TABLET PO SCH (09:00)
[2018-06-27] MEDS: BENZTROPINE MESYLATE 0.5 MG TABLET PO SCH ×2 (09:08→20:19)
[2018-06-27] MEDS: MORPHINE SULFATE 2 MG/ML SYRINGE IVP PRN ×3 (09:08→17:27)
[2018-06-27] MEDS: PANTOPRAZOLE SODIUM 40 MG/VIAL IVP SCH (09:08)
[2018-06-27] MEDS: ESCITALOPRAM OXALATE 10 MG TABLET PO SCH (09:08)
[2018-06-27 13:23] LABS: HEMATOCRIT 43.8 % (41-53); HEMOGLOBIN 14.9 g/dL (13.5-17.5)
[2018-06-27] MEDS: DIVALPROEX SODIUM 500 MG DR TABLET PO SCH (20:19)
[2018-06-27] MEDS: ZOLPIDEM TARTRATE 5 MG TABLET PO PRN (20:19)
[2018-06-27] MEDS: APIXABAN 5 MG TABLET PO SCH (20:19)
[2018-06-27] MEDS: QUEtiapine FUMARATE 200 MG TABLET PO SCH (20:22)
[2018-06-27 21:17] LABS: HEMATOCRIT 41.4 % (41-53)
[2018-06-28] MEDS: MORPHINE SULFATE 2 MG/ML SYRINGE IVP PRN ×2 (01:36→09:52)
[2018-06-28 04:38] VITALS: BP 102/68
[2018-06-28 06:36] LABS: BASOPHILS % (AUTO) 0.4 % (0.0-2.0); EOSINOPHILS % (AUTO) 2.7 % (1.0-6.0); HEMATOCRIT 41.1 % (41-53); LYMPHOCYTES # (AUTO) 2.7 K/uL (1.0-4.8); LYMPHOCYTES % (AUTO) 35.4 % (22.0-44.0); MEAN CORPUSCULAR HEMOGLOBIN 30.1 pg (26.0-34.0); MEAN CORPUSCULAR VOLUME 88 fL (80-100); MONOCYTES # (AUTO) 0.5 K/uL (0.1-1.0); MONOCYTES % (AUTO) 7.2 % (2.0-9.0); NEUTROPHILS # (AUTO) 4.1 K/uL (1.8-7.7); NEUTROPHILS % (AUTO) 54.3 % (40.0-70.0); PLATELET COUNT (AUTO) 180 K/uL (150-450); RED BLOOD CELL COUNT(AUTO) 4.65 MIL/uL (4.50-5.90); RED CELL DISTRIBUTION WIDTH 14.6 % (11.5-14.5)
[2018-06-28 06:46] LABS: ANION GAP 8 mmol/L (8-16); CALCIUM, TOTAL 8.6 mg/dL (8.8-10.5); CARBON DIOXIDE 28 mmol/L (22-29); CHLORIDE 105 mmol/L (98-107); CREATININE 0.96 mg/dL (0.60-1.30); GLOMERULAR FILTR. RATE CALC > 60 mL/min (>60); GLUCOSE,RANDOM 89 mg/dL (70-110); POTASSIUM 4.3 mmol/L (3.5-5.1); SODIUM SERUM 141 mmol/L (136-145); UREA NITROGEN, BLOOD 16 mg/dL (7-18)
[2018-06-28 07:46] VITALS: BP 86/67
[2018-06-28] MEDS: LOSARTAN POTASSIUM 50 MG TABLET PO SCH (09:12)
[2018-06-28] MEDS: APIXABAN 5 MG TABLET PO SCH (09:12)
[2018-06-28] MEDS: PANTOPRAZOLE SODIUM 40 MG/VIAL IVP SCH (09:12)
[2018-06-28] MEDS: ESCITALOPRAM OXALATE 10 MG TABLET PO SCH (09:12)
[2018-06-28] MEDS: BENZTROPINE MESYLATE 0.5 MG TABLET PO SCH (09:12)
[2018-06-28] MEDS ORDERED: APIX5TAB PO (11:00)
[2018-06-28 11:45] VITALS: BP 108/70
[2018-06-28 15:23] VITALS: BP 122/80
[2018-06-29] MEDS ORDERED: ASPI81 PO (22:02)
[2018-06-29] MEDS ORDERED: SIMV-261 PO (22:02)
== END 2018-06-28 16:35 | disposition home or self-care (01) | DRG 254 ==
LOC: EMS 18:01 → 5N 06-26 01:32
PROVIDERS: ADMIT Family Medicine; ATTEND Family Medicine
DX: K92.1 Melena (principal); I80.01 Phlebitis and thrombophlebitis of superficial vessels of right lower extremity; I10 Essential (primary) hypertension; K42.9 Umbilical hernia without obstruction or gangrene; F17.210 Nicotine dependence, cigarettes, uncomplicated; F31.9 Bipolar disorder, unspecified; F10.20 Alcohol dependence, uncomplicated; Z79.01 Long term (current) use of anticoagulants; E66.9 Obesity, unspecified; Z68.41 Body mass index [BMI] 40.0-44.9, adult; Z88.1 Allergy status to other antibiotic agents; Z79.899 Other long term (current) drug therapy; Z90.49 Acquired absence of other specified parts of digestive tract
CPT/HCPCS: 74176; 82270; 82271; 83605; 83735; 85014; 85018; 86850; 86900; 86901; 93005; 93970; 96374; 96375; 96376; 99285; C9113; J2270; J2405; J7030

== ENCOUNTER 2018-06-29 21:41 | Inpatient (IN) | payer MEDICAID ==
[~2018-06-29] VITALS: Ht 177.8 cm; Wt 120.6 kg
[~2018-06-29 21:41] MED LIST changes: +APIX5TAB PO; -WARF10TA23 PO
[2018-06-29] MEDS ORDERED: ASPI81 PO (22:02)
[2018-06-29] MEDS ORDERED: SIMV-261 PO (22:02)
[2018-06-29 22:30] LABS: BASOPHILS % (AUTO) 0.9 % (0.0-2.0); HEMATOCRIT 41.2 % (41-53); HEMOGLOBIN 14.3 g/dL (13.5-17.5); LYMPHOCYTES # (AUTO) 2.4 K/uL (1.0-4.8); LYMPHOCYTES % (AUTO) 27.2 % (22.0-44.0); MEAN CORPUSCULAR HEMOGLOBIN 30.6 pg (26.0-34.0); MEAN CORPUSCULAR HGB CONC 34.8 G/dL (31.0-37.0); MEAN CORPUSCULAR VOLUME 88 fL (80-100); MONOCYTES # (AUTO) 0.7 K/uL (0.1-1.0); MONOCYTES % (AUTO) 8.2 % (2.0-9.0); NEUTROPHILS # (AUTO) 5.5 K/uL (1.8-7.7); NEUTROPHILS % (AUTO) 61.7 % (40.0-70.0); PLATELET COUNT (AUTO) 183 K/uL (150-450); RED BLOOD CELL COUNT(AUTO) 4.69 MIL/uL (4.50-5.90); RED CELL DISTRIBUTION WIDTH 14.3 % (11.5-14.5)
[2018-06-29 22:42] LABS: ANION GAP 6 mmol/L (8-16); CALCIUM, TOTAL 8.9 mg/dL (8.8-10.5); CARBON DIOXIDE 29 mmol/L (22-29); CHLORIDE 105 mmol/L (98-107); CREATININE 0.86 mg/dL (0.60-1.30); GLOMERULAR FILTR. RATE CALC > 60 mL/min (>60); GLUCOSE,RANDOM 109 mg/dL (70-110); PROTHROMBIN TIME 10.8 SEC (9.4-11.6); SODIUM SERUM 140 mmol/L (136-145); UREA NITROGEN, BLOOD 14 mg/dL (7-18)
[2018-06-29 22:56] LABS: B-TYPE NATRIURETIC PEPTIDE 6 pg/mL (0-100)
[2018-06-29 23:06] LABS: ALANINE AMINOTRANSFERASE 26 U/L (12-78); ALBUMIN 3.8 g/dL (3.4-5.0); ALKALINE PHOSPHATASE 78 U/L (46-116); ASPARTATE AMINOTRANSFERASE 21 U/L (15-37); BILIRUBIN,TOTAL 0.3 mg/dL (0.1-1.0); CREATINE KINASE MB 1.1 ng/mL (0-5); CREATINE KINASE, TOTAL 225 U/L (39-308); LIPASE 174 U/L (73-393); TOTAL PROTEIN, SERUM 7.5 g/dL (6.4-8.2); VALPROIC ACID 11 mcg/mL (50-100)
[2018-06-29] MEDS ORDERED: IOVERSOL 350 MG/ML 150 ML VIAL ONE (23:24)
[2018-06-29] MEDS ORDERED: SODIUM CHLORIDE 0.9% 100 ML ONE (23:24)
[2018-06-29] MEDS ORDERED: ACETAMINOPHEN 325 MG TABLET PO ONE (23:45)
[2018-06-29] MEDS ORDERED: MORPHINE SULFATE 4 MG/ML SYRINGE IVP ONE (23:45)
[2018-06-30] MEDS ORDERED: 0.9% SODIUM CHLORIDE 10 ML SYRINGE IVP PRN ×2 (01:45→10:45)
[2018-06-30] MEDS ORDERED: PANTOPRAZOLE SODIUM 40 MG/VIAL IVP ONE (01:45)
[2018-06-30] MEDS ORDERED: ONDANSETRON HCL 4 MG/2 ML VIAL IVP PRN ×2 (01:45→10:45)
[2018-06-30 01:48] LABS: APPEARANCE,URINE CLEAR (CLEAR); BILIRUBIN,URINE NEGATIVE (NEGATIVE); GLUCOSE, URINE (UA) NEGATIVE (NEGATIVE); KETONES,URINE NEGATIVE (NEGATIVE); LEUKOCYTE ESTERASE ,URINE NEGATIVE (NEGATIVE); NITRATE,URINE NEGATIVE (NEGATIVE); OCCULT BLOOD,URINE NEGATIVE (NEGATIVE); PROTEIN,URINE NEGATIVE (NEGATIVE)
[2018-06-30] MEDS ORDERED: MORPHINE SULFATE 2 MG/ML SYRINGE IVP ONE (02:30)
[2018-06-30 03:01] VITALS: BP 144/88
[2018-06-30 08:18] VITALS: BP 124/82
[2018-06-30] MEDS: ACETAMINOPHEN 325 MG TABLET PO PRN ×3 (09:00→18:21)
[2018-06-30] MEDS ORDERED: ZOLPIDEM TARTRATE 5 MG TABLET PO PRN (10:45)
[2018-06-30 10:55] LABS: HEMATOCRIT 41.8 % (41-53); HEMOGLOBIN 14.4 g/dL (13.5-17.5)
[2018-06-30 11:32] VITALS: BP 120/77
[2018-06-30] MEDS: PANTOPRAZOLE SODIUM 40 MG/VIAL IVP SCH (11:48)
[2018-06-30 15:00] VITALS: BP 95/61
[2018-06-30] MEDS: ESCITALOPRAM OXALATE 10 MG TABLET PO SCH (15:29)
[2018-06-30 18:53] LABS: HEMATOCRIT 42.1 % (41-53); HEMOGLOBIN 14.3 g/dL (13.5-17.5)
[2018-06-30] MEDS: DIVALPROEX SODIUM 500 MG DR TABLET PO SCH (19:53)
[2018-06-30] MEDS: QUEtiapine FUMARATE 200 MG TABLET PO SCH (19:53)
[2018-06-30 20:17] VITALS: BP 126/82
[2018-06-30 23:13] VITALS: BP 119/71
[2018-07-01 03:28] LABS: HEMATOCRIT 42.3 % (41-53); HEMOGLOBIN 14.4 g/dL (13.5-17.5)
[2018-07-01 04:37] VITALS: BP 116/74
[2018-07-01 05:10] LABS: AMPHET/METH SCREEN,URINE NEGATIVE (NEGATIVE); BARBITURATE SCREEN, URINE NEGATIVE (NEGATIVE); BENZODIAZEPINES SCREEN,URINE NEGATIVE (NEGATIVE); CANNABINOID SCREEN,URINE NEGATIVE (NEGATIVE); COCAINE SCREEN,URINE NEGATIVE (NEGATIVE); METHADONE SCREEN, URINE NEGATIVE (NEGATIVE); OPIATE SCREEN,URINE POSITIVE (NEGATIVE)
[2018-07-01 05:11] LABS: PHENCYCLIDINE SCREEN,URINE NEGATIVE (NEGATIVE)
[2018-07-01 07:29] LABS: BASOPHILS % (AUTO) 0.6 % (0.0-2.0); EOSINOPHILS % (AUTO) 2.5 % (1.0-6.0); HEMATOCRIT 42.9 % (41-53); HEMOGLOBIN 14.8 g/dL (13.5-17.5); LYMPHOCYTES # (AUTO) 2.2 K/uL (1.0-4.8); LYMPHOCYTES % (AUTO) 28.5 % (22.0-44.0); MEAN CORPUSCULAR HEMOGLOBIN 30.8 pg (26.0-34.0); MEAN CORPUSCULAR HGB CONC 34.6 G/dL (31.0-37.0); MEAN CORPUSCULAR VOLUME 89 fL (80-100); MONOCYTES # (AUTO) 0.7 K/uL (0.1-1.0); MONOCYTES % (AUTO) 8.4 % (2.0-9.0); NEUTROPHILS # (AUTO) 4.7 K/uL (1.8-7.7); PLATELET COUNT (AUTO) 181 K/uL (150-450); RED BLOOD CELL COUNT(AUTO) 4.82 MIL/uL (4.50-5.90); RED CELL DISTRIBUTION WIDTH 14.2 % (11.5-14.5)
[2018-07-01 07:55] LABS: ALANINE AMINOTRANSFERASE 25 U/L (12-78); ALBUMIN 3.4 g/dL (3.4-5.0); ALKALINE PHOSPHATASE 69 U/L (46-116); ANION GAP 7 mmol/L (8-16); ASPARTATE AMINOTRANSFERASE 25 U/L (15-37); BILIRUBIN,TOTAL 0.5 mg/dL (0.1-1.0); CALCIUM, TOTAL 8.8 mg/dL (8.8-10.5); CARBON DIOXIDE 28 mmol/L (22-29); CHLORIDE 105 mmol/L (98-107); CREATININE 0.98 mg/dL (0.60-1.30); GLOMERULAR FILTR. RATE CALC > 60 mL/min (>60); GLUCOSE,RANDOM 101 mg/dL (70-110); POTASSIUM 4.2 mmol/L (3.5-5.1); SODIUM SERUM 140 mmol/L (136-145); TOTAL PROTEIN, SERUM 7.1 g/dL (6.4-8.2); UREA NITROGEN, BLOOD 11 mg/dL (7-18)
[2018-07-01] MEDS: PANTOPRAZOLE SODIUM 40 MG/VIAL IVP SCH (08:14)
[2018-07-01] MEDS: ESCITALOPRAM OXALATE 10 MG TABLET PO SCH (08:14)
[2018-07-01 08:19] VITALS: BP 146/52
[2018-07-01] MEDS ORDERED: PEG 3350/NA SULF,BICARB,CL/KCL 4000 ML SOLUTION PO ONE (10:00)
[2018-07-01] MEDS: ACETAMINOPHEN 325 MG TABLET PO PRN (11:20)
[2018-07-01 11:53] VITALS: BP 125/71
[2018-07-01 15:22] LABS: HEMATOCRIT 42.8 % (41-53); HEMOGLOBIN 14.7 g/dL (13.5-17.5)
[2018-07-01 15:48] VITALS: BP 130/85
[2018-07-01] MEDS: QUEtiapine FUMARATE 200 MG TABLET PO SCH (20:03)
[2018-07-01] MEDS: DIVALPROEX SODIUM 500 MG DR TABLET PO SCH (20:04)
[2018-07-01 20:37] VITALS: BP 131/62
[2018-07-02 00:06] VITALS: BP 128/90
[2018-07-02 00:51] LABS: HEMATOCRIT 43.6 % (41-53); HEMOGLOBIN 14.9 g/dL (13.5-17.5)
[2018-07-02 04:00] VITALS: BP 112/51
[2018-07-02] MEDS ORDERED: SODIUM CHLORIDE 0.9% 250 ML IV ONE (06:00)
[2018-07-02] MEDS ORDERED: SODIUM CHLORIDE 0.9% 1,000 ML IV ONE ×2 (06:30→06:34)
[2018-07-02 06:46] LABS: BASOPHILS % (AUTO) 0.3 % (0.0-2.0); EOSINOPHILS % (AUTO) 1.1 % (1.0-6.0); HEMATOCRIT 41.4 % (41-53); HEMOGLOBIN 14.3 g/dL (13.5-17.5); LYMPHOCYTES # (AUTO) 2.2 K/uL (1.0-4.8); LYMPHOCYTES % (AUTO) 26.4 % (22.0-44.0); MEAN CORPUSCULAR HEMOGLOBIN 30.4 pg (26.0-34.0); MEAN CORPUSCULAR HGB CONC 34.4 G/dL (31.0-37.0); MEAN CORPUSCULAR VOLUME 88 fL (80-100); MONOCYTES # (AUTO) 0.5 K/uL (0.1-1.0); MONOCYTES % (AUTO) 6.3 % (2.0-9.0); NEUTROPHILS # (AUTO) 5.5 K/uL (1.8-7.7); NEUTROPHILS % (AUTO) 65.9 % (40.0-70.0); PLATELET COUNT (AUTO) 186 K/uL (150-450); RED CELL DISTRIBUTION WIDTH 14.2 % (11.5-14.5)
[2018-07-02 06:59] LABS: ANION GAP 8 mmol/L (8-16); CALCIUM, TOTAL 8.7 mg/dL (8.8-10.5); CARBON DIOXIDE 28 mmol/L (22-29); CHLORIDE 105 mmol/L (98-107); CREATININE 0.96 mg/dL (0.60-1.30); GLOMERULAR FILTR. RATE CALC > 60 mL/min (>60); GLUCOSE,RANDOM 97 mg/dL (70-110); POTASSIUM 4.2 mmol/L (3.5-5.1); SODIUM SERUM 141 mmol/L (136-145); UREA NITROGEN, BLOOD 9 mg/dL (7-18)
[2018-07-02] MEDS ORDERED: FentaNYL CITRATE-PF 100 MCG/2 ML VIAL ONE (07:06)
[2018-07-02] MEDS ORDERED: MIDAZOLAM HCL 5 MG/ML VIAL ONE (07:07)
[2018-07-02 08:48] VITALS: BP 132/74
[2018-07-02] MEDS: PANTOPRAZOLE SODIUM 40 MG/VIAL IVP SCH (10:13)
[2018-07-02] MEDS: ESCITALOPRAM OXALATE 10 MG TABLET PO SCH (10:14)
[2018-07-02] MEDS: ACETAMINOPHEN 325 MG TABLET PO PRN (10:14)
[2018-07-02 11:06] VITALS: BP 127/76
[2018-07-02 13:32] LABS: HEMATOCRIT 42.3 % (41-53); HEMOGLOBIN 14.5 g/dL (13.5-17.5)
[2018-07-02] MEDS ORDERED: APIX5TAB PO (14:14)
[2018-07-02 15:18] VITALS: BP 125/74
[2018-07-02] MEDS ORDERED: PROPOFOL 1% 20 ML VIAL IVP ONE (15:45)
== END 2018-07-02 15:46 | disposition home or self-care (01) | DRG 241 ==
LOC: EMS 21:42 → 6N 06-30 02:00 → 4E 07-02 07:34
PROVIDERS: ADMIT Internal Medicine; ATTEND Internal Medicine
PROC: 0DJD8ZZ Inspection of Lower Intestinal Tract, Via Natural or Artificial Opening Endoscopic (ICD-10-PCS; 2018-07-02)
PROC: 0DB68ZX Excision of Stomach, Via Natural or Artificial Opening Endoscopic, Diagnostic (ICD-10-PCS; principal; 2018-07-02 07:30)
DX: K29.71 Gastritis, unspecified, with bleeding (principal); F10.20 Alcohol dependence, uncomplicated; K64.0 First degree hemorrhoids; I10 Essential (primary) hypertension; F31.9 Bipolar disorder, unspecified; F17.210 Nicotine dependence, cigarettes, uncomplicated; Z86.718 Personal history of other venous thrombosis and embolism; Z88.1 Allergy status to other antibiotic agents; Z79.01 Long term (current) use of anticoagulants; Z79.82 Long term (current) use of aspirin; Z90.49 Acquired absence of other specified parts of digestive tract
CPT/HCPCS: 74177; 80307; 82270; 82271; 83735; 85014; 85018; 87081; 88305; 88312; 93005; 96374; 96375; 99285; C9113; J2250; J2270; J2405; J2704; J3010; J7030; J7050

== ENCOUNTER 2019-05-31 19:06 | Emergency (ER) | payer MEDICAID ==
[~2019-05-31] VITALS: Ht 177.8 cm; Wt 100.0 kg
[~2019-05-31 19:06] MED LIST changes: +ASPI81 PO; -LOSA50TA37 PO; +LOSA50TA64 PO; +SIMV-261 PO
[2019-05-31] MEDS ORDERED: VENL25TA47 PO (19:34)
[2019-05-31 19:56] LABS: BASOPHILS % (AUTO) 0.7 % (0.0-2.0); HEMATOCRIT 40.8 % (41-53); HEMOGLOBIN 13.2 g/dL (13.5-17.5); LYMPHOCYTES # (AUTO) 2.5 K/uL (1.0-4.8); LYMPHOCYTES % (AUTO) 30.6 % (22.0-44.0); MEAN CORPUSCULAR HEMOGLOBIN 29.7 pg (26.0-34.0); MEAN CORPUSCULAR HGB CONC 32.3 G/dL (31.0-37.0); MEAN CORPUSCULAR VOLUME 92 fL (80-100); MONOCYTES # (AUTO) 0.5 K/uL (0.1-1.0); MONOCYTES % (AUTO) 6.2 % (2.0-9.0); NEUTROPHILS # (AUTO) 4.8 K/uL (1.8-7.7); NEUTROPHILS % (AUTO) 58.5 % (40.0-70.0); PLATELET COUNT (AUTO) 209 K/uL (150-450); RED BLOOD CELL COUNT(AUTO) 4.44 MIL/uL (4.50-5.90); RED CELL DISTRIBUTION WIDTH 14.9 % (11.5-14.5)
[2019-05-31 20:06] LABS: ANION GAP 7 mmol/L (8-16); CALCIUM, TOTAL 9.1 mg/dL (8.8-10.5); CARBON DIOXIDE 28 mmol/L (22-29); CHLORIDE 110 mmol/L (98-107); CREATININE 0.89 mg/dL (0.60-1.30); GLOMERULAR FILTR. RATE CALC > 60 mL/min (>60); GLUCOSE,RANDOM 78 mg/dL (70-110); POTASSIUM 3.7 mmol/L (3.5-5.1); SODIUM SERUM 145 mmol/L (136-145); UREA NITROGEN, BLOOD 8 mg/dL (7-18)
[2019-05-31 20:22] LABS: B-TYPE NATRIURETIC PEPTIDE 6 pg/mL (0-100)
[2019-05-31] MEDS ORDERED: ACETAMINOPHEN 500 MG TABLET PO ONE (20:30)
[2019-05-31 20:31] LABS: ALANINE AMINOTRANSFERASE 18 U/L (12-78); ALBUMIN 2.9 g/dL (3.4-5.0); ALKALINE PHOSPHATASE 86 U/L (46-116); ASPARTATE AMINOTRANSFERASE 11 U/L (15-37); BILIRUBIN,TOTAL 0.1 mg/dL (0.1-1.0); CREATINE KINASE, TOTAL ONLY 92 U/L (39-308); TOTAL PROTEIN, SERUM 6.2 g/dL (6.4-8.2)
[2019-05-31 21:01] LABS: PROTHROMBIN TIME 10.3 SEC (9.4-11.6)
[2019-05-31 21:25] LABS: APPEARANCE,URINE CLEAR (CLEAR); GLUCOSE, URINE (UA) NEGATIVE (NEGATIVE); KETONES,URINE TRACE mg/dL (NEGATIVE); LEUKOCYTE ESTERASE ,URINE NEGATIVE (NEGATIVE); NITRATE,URINE NEGATIVE (NEGATIVE); OCCULT BLOOD,URINE NEGATIVE (NEGATIVE); PH,URINE 5.5 (5.0-8.0); PROTEIN,URINE NEGATIVE (NEGATIVE)
[2019-05-31 21:28] LABS: AMPHET/METH SCREEN,URINE POSITIVE (NEGATIVE); BARBITURATE SCREEN, URINE NEGATIVE (NEGATIVE); BENZODIAZEPINES SCREEN,URINE NEGATIVE (NEGATIVE); BILIRUBIN,URINE PRELIM. POSITIVE (NEGATIVE); CANNABINOID SCREEN,URINE NEGATIVE (NEGATIVE); COCAINE SCREEN,URINE NEGATIVE (NEGATIVE); METHADONE SCREEN, URINE NEGATIVE (NEGATIVE); OPIATE SCREEN,URINE NEGATIVE (NEGATIVE)
[2019-05-31 21:29] LABS: PHENCYCLIDINE SCREEN,URINE NEGATIVE (NEGATIVE)
[2019-05-31 21:54] LABS: RBC,URINE None Seen /HPF (0-2); WBC,URINE 0-2 /HPF (0-5)
[2019-05-31 21:55] LABS: BACTERIA,URINE Rare /HPF (None Seen); CALCIUM OXALATE CRYSTALS,UR Many /LPF (None Seen); SQUAMOUS EPITHELIAL CELL,UR None Seen /LPF (None Seen)
[2019-05-31 22:41] VITALS: BP 130/78
== END 2019-05-31 22:55 | disposition home or self-care (01) ==
LOC: EMS 19:07
DX: R07.89 Other chest pain (principal); F41.9 Anxiety disorder, unspecified; F15.10 Other stimulant abuse, uncomplicated; R11.0 Nausea; F31.9 Bipolar disorder, unspecified; I10 Essential (primary) hypertension; F17.210 Nicotine dependence, cigarettes, uncomplicated; Z88.1 Allergy status to other antibiotic agents; Z79.82 Long term (current) use of aspirin
CPT/HCPCS: 36415; 71045; 80053; 80307; 81001; 82550; 83880; 84484; 85025; 85610; 85730; 93005; 99285; G0480

== ENCOUNTER 2021-01-21 17:41 | Emergency (ER) | payer MEDICAID ==
[~2021-01-21] VITALS: Ht 180.3 cm; Wt 113.6 kg
[~2021-01-21 17:41] MED LIST changes: -APIX5TAB PO; +ASPI-1450 PO; -ASPI81 PO; -DIVA-78 PO; +DOCU-350 PO; -DOCU250C91 PO; -ESCI10TA PO; +LOSA50TA37 PO; -LOSA50TA64 PO; -SIMV-261 PO; +VENL25TA47 PO
[2021-01-21 17:50] VITALS: BP 141/97
[2021-01-21] MEDS ORDERED: ACETAMINOPHEN 500 MG TABLET PO ONE (18:00)
== END 2021-01-21 18:48 | disposition left against medical advice (07) ==
LOC: EMS 17:41
DX: R07.9 Chest pain, unspecified (principal); R06.02 Shortness of breath; F32.9 Major depressive disorder, single episode, unspecified; I10 Essential (primary) hypertension; Z88.8 Allergy status to other drugs, medicaments and biological substances; Z79.899 Other long term (current) drug therapy
CPT/HCPCS: 93005; 99283; 71045-TC

== ENCOUNTER 2021-08-22 09:34 | Emergency (ER) | payer MEDICAID ==
[~2021-08-22] VITALS: Ht 180.3 cm; Wt 100.0 kg
[2021-08-22] MEDS ORDERED: MORPHINE SULFATE 4 MG/ML SYRINGE IVP ONE (10:00)
[2021-08-22] MEDS ORDERED: NITROGLYCERIN 2% (1 GM=INCH) PACKET TP ONE (10:00)
[2021-08-22] MEDS ORDERED: ONDANSETRON HCL 4 MG/2 ML VIAL IVP ONE (10:00)
[2021-08-22 10:14] LABS: BASOPHILS % (AUTO) 0.7 % (0.0-2.0); EOSINOPHILS % (AUTO) 0.4 % (1.0-6.0); HEMATOCRIT 37.6 % (41-53); HEMOGLOBIN 12.7 g/dL (13.5-17.5); LYMPHOCYTES # (AUTO) 1.6 K/uL (1.0-4.8); LYMPHOCYTES % (AUTO) 16.3 % (22.0-44.0); MEAN CORPUSCULAR HEMOGLOBIN 29.9 pg (26.0-34.0); MEAN CORPUSCULAR HGB CONC 33.9 G/dL (31.0-37.0); MEAN CORPUSCULAR VOLUME 88 fL (80-100); MONOCYTES # (AUTO) 0.5 K/uL (0.1-1.0); MONOCYTES % (AUTO) 5.5 % (2.0-9.0); NEUTROPHILS # (AUTO) 7.5 K/uL (1.8-7.7); NEUTROPHILS % (AUTO) 77.1 % (40.0-70.0); PLATELET COUNT (AUTO) 215 K/uL (150-450); RED BLOOD CELL COUNT(AUTO) 4.26 MIL/uL (4.50-5.90); RED CELL DISTRIBUTION WIDTH 15.3 % (11.5-14.5)
[2021-08-22 10:22] LABS: ANION GAP 8 mmol/L (8-16); CALCIUM, TOTAL 8.6 mg/dL (8.8-10.5); CARBON DIOXIDE 33 mmol/L (22-29); CHLORIDE 107 mmol/L (98-107); CREATININE 0.72 mg/dL (0.60-1.30); GLOMERULAR FILTR. RATE CALC > 60 mL/min (>60); GLUCOSE,RANDOM 110 mg/dL (70-110); LIPASE 65 U/L (73-393); POTASSIUM 3.3 mmol/L (3.5-5.1); SODIUM SERUM 148 mmol/L (136-145); UREA NITROGEN, BLOOD 6 mg/dL (7-18)
[2021-08-22 10:25] LABS: PROTHROMBIN TIME 10.7 SEC (9.4-11.6)
[2021-08-22 10:28] LABS: ALANINE AMINOTRANSFERASE 32 U/L (12-78); ALBUMIN 3.6 g/dL (3.4-5.0); ALKALINE PHOSPHATASE 102 U/L (46-116); ASPARTATE AMINOTRANSFERASE 23 U/L (15-37); BILIRUBIN,TOTAL 0.2 mg/dL (0.1-1.0); TOTAL PROTEIN, SERUM 6.8 g/dL (6.4-8.2)
[2021-08-22] MEDS ORDERED: LORazepam 1 MG TABLET PO ONE (10:45)
[2021-08-22] MEDS ORDERED: POTASSIUM CHLORIDE 20 MEQ ER TABLET PO ONE (11:00)
[2021-08-22] MEDS ORDERED: KETOROLAC TROMETHAMINE 30 MG/ML VIAL IVP ONE (11:45)
[2021-08-22 13:30] VITALS: BP 132/51
[2021-08-22] MEDS ORDERED: DiphenhydrAMINE HCL 50 MG/ML VIAL IVP ONE (13:30)
[2021-08-22] MEDS ORDERED: PROCHLORPERAZINE EDISYLATE 5 MG/ML 2 ML VIAL IVP ONE (13:30)
== END 2021-08-22 14:29 | disposition home or self-care (01) ==
LOC: EMS 09:38
DX: R07.89 Other chest pain (principal); R51.9 Headache, unspecified; F32.9 Major depressive disorder, single episode, unspecified; I10 Essential (primary) hypertension; F17.210 Nicotine dependence, cigarettes, uncomplicated; F15.90 Other stimulant use, unspecified, uncomplicated; Z86.79 Personal history of other diseases of the circulatory system
CPT/HCPCS: 36415; 71045; 80053; 83690; 84484; 85025; 85610; 93005; 93971; 96374; 96375; 99285; G0480; J0780; J1200; J1885; J2270; J2405

== ENCOUNTER 2021-10-02 07:42 | Emergency (ER) | payer MEDICAID ==
[~2021-10-02] VITALS: Ht 180.3 cm; Wt 109.1 kg
[2021-10-02] MEDS ORDERED: ONDANSETRON HCL 4 MG/2 ML VIAL IVP ONE (08:00)
[2021-10-02] MEDS ORDERED: KETOROLAC TROMETHAMINE 30 MG/ML VIAL IVP ONE ×2 (08:00→09:30)
[2021-10-02] MEDS ORDERED: SODIUM CHLORIDE 0.9% 1,000 ML IV ONE ×2 (08:00→08:45)
[2021-10-02] MEDS ORDERED: ACETAMINOPHEN 500 MG TABLET PO ONE (08:00)
[2021-10-02] MEDS: LIDOCAINE 5% TRANSDERMAL PATCH TD ONE ×2 (08:07→08:32)
[2021-10-02 08:12] LABS: BASOPHILS % (AUTO) 0.6 % (0.0-2.0); EOSINOPHILS % (AUTO) 1.8 % (1.0-6.0); HEMATOCRIT 41.6 % (41-53); HEMOGLOBIN 13.9 g/dL (13.5-17.5); LYMPHOCYTES # (AUTO) 2.1 K/uL (1.0-4.8); LYMPHOCYTES % (AUTO) 24.5 % (22.0-44.0); MEAN CORPUSCULAR HEMOGLOBIN 30.3 pg (26.0-34.0); MEAN CORPUSCULAR HGB CONC 33.4 G/dL (31.0-37.0); MEAN CORPUSCULAR VOLUME 91 fL (80-100); MONOCYTES # (AUTO) 0.5 K/uL (0.1-1.0); MONOCYTES % (AUTO) 6.4 % (2.0-9.0); NEUTROPHILS # (AUTO) 5.6 K/uL (1.8-7.7); NEUTROPHILS % (AUTO) 66.7 % (40.0-70.0); PLATELET COUNT (AUTO) 199 K/uL (150-450); RED BLOOD CELL COUNT(AUTO) 4.59 MIL/uL (4.50-5.90); RED CELL DISTRIBUTION WIDTH 14.8 % (11.5-14.5)
[2021-10-02 08:20] LABS: ANION GAP 5 mmol/L (8-16); CARBON DIOXIDE 30 mmol/L (22-29); CHLORIDE 108 mmol/L (98-107); CREATININE 0.96 mg/dL (0.60-1.30); GLUCOSE,RANDOM 149 mg/dL (70-110); POTASSIUM 4.1 mmol/L (3.5-5.1); SODIUM SERUM 143 mmol/L (136-145); UREA NITROGEN, BLOOD 8 mg/dL (7-18)
[2021-10-02] MEDS ORDERED: IOHEXOL 350 MG/ML 150 ML VIAL ONE (08:20)
[2021-10-02 08:21] LABS: CALCIUM, TOTAL 8.7 mg/dL (8.8-10.5); GLOMERULAR FILTR. RATE CALC > 60 mL/min (>60)
[2021-10-02] MEDS ORDERED: SODIUM CHLORIDE 0.9% 100 ML ONE (08:21)
[2021-10-02 08:26] LABS: ALANINE AMINOTRANSFERASE 22 U/L (12-78); ALBUMIN 3.4 g/dL (3.4-5.0); ALKALINE PHOSPHATASE 100 U/L (46-116); ASPARTATE AMINOTRANSFERASE 14 U/L (15-37); BILIRUBIN,TOTAL 0.3 mg/dL (0.1-1.0); LIPASE 143 U/L (73-393); TOTAL PROTEIN, SERUM 6.7 g/dL (6.4-8.2)
[2021-10-02 08:38] LABS: LACTIC ACID 2.4 mmol/L (0.4-2.0)
[2021-10-02 10:52] LABS: APPEARANCE,URINE CLEAR (CLEAR); BILIRUBIN,URINE NEGATIVE (NEGATIVE); GLUCOSE, URINE (UA) NEGATIVE (NEGATIVE); KETONES,URINE NEGATIVE (NEGATIVE); LEUKOCYTE ESTERASE ,URINE NEGATIVE (NEGATIVE); NITRATE,URINE NEGATIVE (NEGATIVE); OCCULT BLOOD,URINE NEGATIVE (NEGATIVE); PH,URINE 5.5 (5.0-8.0); PROTEIN,URINE NEGATIVE (NEGATIVE)
[2021-10-02 12:15] VITALS: BP 121/85
== END 2021-10-02 12:16 | disposition home or self-care (01) ==
LOC: EMS 07:42
DX: S39.012A Strain of muscle, fascia and tendon of lower back, initial encounter (principal); F31.9 Bipolar disorder, unspecified; I10 Essential (primary) hypertension; F17.210 Nicotine dependence, cigarettes, uncomplicated; Z88.1 Allergy status to other antibiotic agents; Z79.899 Other long term (current) drug therapy; X50.0XXA Overexertion from strenuous movement or load, initial encounter; Y93.89 Activity, other specified; Y92.89 Other specified places as the place of occurrence of the external cause; Y99.8 Other external cause status
CPT/HCPCS: 36415; 74177; 80053; 81003; 83605; 83690; 85025; 96361; 96374; 96375; 99285; J1885; J2405; J7030; J7050; Q9967

== ENCOUNTER 2021-10-25 02:36 | Emergency (ER) | payer MEDICAID ==
[~2021-10-25] VITALS: Ht 180.3 cm; Wt 118.2 kg
[2021-10-25] MEDS ORDERED: QUEtiapine FUMARATE 100 MG TABLET PO ONE (03:00)
[2021-10-25 03:40] VITALS: BP 145/93
== END 2021-10-25 04:01 | disposition home or self-care (01) ==
LOC: EMS 02:39
DX: F41.9 Anxiety disorder, unspecified (principal); F31.9 Bipolar disorder, unspecified; I10 Essential (primary) hypertension; F17.210 Nicotine dependence, cigarettes, uncomplicated; Z76.0 Encounter for issue of repeat prescription; Z88.1 Allergy status to other antibiotic agents
CPT/HCPCS: 99283

== ENCOUNTER 2022-04-19 18:48 | Emergency (ER) | payer MEDICAID ==
[~2022-04-19] VITALS: Ht 177.8 cm; Wt 136.4 kg
[~2022-04-19 18:48] MED LIST changes: -BENZ0.5T44 PO; +BENZ0.5T49 PO; +LOSA-382 PO; -LOSA50TA37 PO
[2022-04-19] MEDS ORDERED: PALI234D IM (18:59)
[2022-04-19] MEDS ORDERED: VENL225T PO (18:59)
[2022-04-19] MEDS ORDERED: QUET400T54 PO (18:59)
[2022-04-19] MEDS ORDERED: ASPIRIN 81 MG CHEWABLE TABLET PO ONE (19:00)
[2022-04-19 19:11] LABS: BASOPHILS % (AUTO) 0.7 % (0.0-2.0); EOSINOPHILS % (AUTO) 2.4 % (1.0-6.0); HEMATOCRIT 40.3 % (41-53); HEMOGLOBIN 13.4 g/dL (13.5-17.5); LYMPHOCYTES # (AUTO) 2.5 K/uL (1.0-4.8); LYMPHOCYTES % (AUTO) 25.9 % (22.0-44.0); MEAN CORPUSCULAR HGB CONC 33.4 G/dL (31.0-37.0); MEAN CORPUSCULAR VOLUME 87 fL (80-100); MONOCYTES # (AUTO) 0.7 K/uL (0.1-1.0); MONOCYTES % (AUTO) 7.4 % (2.0-9.0); NEUTROPHILS % (AUTO) 63.6 % (40.0-70.0); PLATELET COUNT (AUTO) 252 K/uL (150-450); RED BLOOD CELL COUNT(AUTO) 4.64 MIL/uL (4.50-5.90); RED CELL DISTRIBUTION WIDTH 14.9 % (11.5-14.5)
[2022-04-19 19:17] LABS: ANION GAP 8 mmol/L (8-16); CALCIUM, TOTAL 8.8 mg/dL (8.8-10.5); CARBON DIOXIDE 30 mmol/L (22-29); CHLORIDE 101 mmol/L (98-107); CREATININE 0.94 mg/dL (0.60-1.30); GLOMERULAR FILTR. RATE CALC > 60 mL/min (>60); GLUCOSE,RANDOM 138 mg/dL (70-110); POTASSIUM 3.5 mmol/L (3.5-5.1); SODIUM SERUM 139 mmol/L (136-145); UREA NITROGEN, BLOOD 9 mg/dL (7-18)
[2022-04-19 19:37] LABS: B-TYPE NATRIURETIC PEPTIDE 8 pg/mL (0-100)
[2022-04-19 19:42] LABS: ALANINE AMINOTRANSFERASE 30 U/L (12-78); ALBUMIN 3.5 g/dL (3.4-5.0); ALKALINE PHOSPHATASE 102 U/L (46-116); ASPARTATE AMINOTRANSFERASE 20 U/L (15-37); BILIRUBIN,TOTAL 0.2 mg/dL (0.1-1.0); CREATINE KINASE, TOTAL ONLY 297 U/L (39-308); TOTAL PROTEIN, SERUM 7.1 g/dL (6.4-8.2)
[2022-04-19] MEDS ORDERED: HYDROCODONE/ACETAMINOPHEN 5-325 MG TABLET PO ONE (20:00)
[2022-04-19 21:44] VITALS: BP 151/97
== END 2022-04-19 21:15 | disposition left against medical advice (07) ==
LOC: EMS 19:09
DX: R07.9 Chest pain, unspecified (principal); G89.29 Other chronic pain; F31.9 Bipolar disorder, unspecified; F10.20 Alcohol dependence, uncomplicated; I10 Essential (primary) hypertension; F15.90 Other stimulant use, unspecified, uncomplicated; F17.210 Nicotine dependence, cigarettes, uncomplicated; Z86.718 Personal history of other venous thrombosis and embolism; Z98.890 Other specified postprocedural states; Z88.1 Allergy status to other antibiotic agents
CPT/HCPCS: 71045; 80053; 82550; 83880; 84484; 85025; 93005; 99285; 36415-L1; 36415-TC

== ENCOUNTER 2022-05-16 06:33 | Emergency (ER) | payer MEDICAID ==
[~2022-05-16] VITALS: Ht 180.3 cm; Wt 133.6 kg
[~2022-05-16 06:33] MED LIST changes: +PALI234D IM; -QUET200T PO; +QUET400T54 PO; +VENL225T PO; -VENL25TA47 PO
[2022-05-16] MEDS ORDERED: ASPIRIN 81 MG CHEWABLE TABLET PO ONE (06:45)
[2022-05-16] MEDS ORDERED: NITROGLYCERIN 0.4 MG SUBLINGUAL TABLET #25 SL ONE (06:45)
[2022-05-16 07:06] LABS: BASOPHILS % (AUTO) 0.5 % (0.0-2.0); HEMATOCRIT 39.6 % (41-53); HEMOGLOBIN 13.4 g/dL (13.5-17.5); LYMPHOCYTES # (AUTO) 2.3 K/uL (1.0-4.8); LYMPHOCYTES % (AUTO) 25.9 % (22.0-44.0); MEAN CORPUSCULAR HEMOGLOBIN 29.6 pg (26.0-34.0); MEAN CORPUSCULAR HGB CONC 33.9 G/dL (31.0-37.0); MEAN CORPUSCULAR VOLUME 87 fL (80-100); MONOCYTES # (AUTO) 0.7 K/uL (0.1-1.0); MONOCYTES % (AUTO) 8.2 % (2.0-9.0); NEUTROPHILS # (AUTO) 5.6 K/uL (1.8-7.7); NEUTROPHILS % (AUTO) 63.4 % (40.0-70.0); PLATELET COUNT (AUTO) 226 K/uL (150-450); RED BLOOD CELL COUNT(AUTO) 4.53 MIL/uL (4.50-5.90); RED CELL DISTRIBUTION WIDTH 14.8 % (11.5-14.5)
[2022-05-16 07:15] LABS: ANION GAP 5 mmol/L (8-16); CALCIUM, TOTAL 8.9 mg/dL (8.8-10.5); CARBON DIOXIDE 27 mmol/L (22-29); CHLORIDE 104 mmol/L (98-107); CREATININE 0.89 mg/dL (0.60-1.30); GLOMERULAR FILTR. RATE CALC > 60 mL/min (>60); GLUCOSE,RANDOM 164 mg/dL (70-110); POTASSIUM 3.9 mmol/L (3.5-5.1); SODIUM SERUM 136 mmol/L (136-145); UREA NITROGEN, BLOOD 11 mg/dL (7-18)
[2022-05-16 07:39] LABS: ALANINE AMINOTRANSFERASE 68 U/L (12-78); ALBUMIN 3.5 g/dL (3.4-5.0); ALKALINE PHOSPHATASE 96 U/L (46-116); ASPARTATE AMINOTRANSFERASE 40 U/L (15-37); BILIRUBIN,TOTAL 0.2 mg/dL (0.1-1.0); CREATINE KINASE, TOTAL ONLY 258 U/L (39-308); LIPASE 105 U/L (73-393); TOTAL PROTEIN, SERUM 7.1 g/dL (6.4-8.2)
[2022-05-16 07:40] LABS: B-TYPE NATRIURETIC PEPTIDE < 5 pg/mL (0-100)
[2022-05-16] MEDS ORDERED: KETOROLAC TROMETHAMINE 30 MG/ML VIAL IVP ONE (08:00)
[2022-05-16 10:04] LABS: APPEARANCE,URINE CLEAR (CLEAR); BILIRUBIN,URINE NEGATIVE (NEGATIVE); GLUCOSE, URINE (UA) NEGATIVE (NEGATIVE); KETONES,URINE NEGATIVE (NEGATIVE); LEUKOCYTE ESTERASE ,URINE NEGATIVE (NEGATIVE); NITRATE,URINE NEGATIVE (NEGATIVE); OCCULT BLOOD,URINE NEGATIVE (NEGATIVE); PH,URINE 5.5 (5.0-8.0); PROTEIN,URINE NEGATIVE (NEGATIVE); SPECIFIC GRAVITIY, URINE 1.022 (1.003-1.030); UROBILINOGEN,URINE <=1.0 mg/dL (<=1.0)
[2022-05-16 10:30] VITALS: BP 137/93
[2022-05-16] MEDS ORDERED: IBUP-2070 PO (10:34)
== END 2022-05-16 10:54 | disposition home or self-care (01) ==
LOC: EMS 06:34
DX: R25.2 Cramp and spasm (principal); R07.9 Chest pain, unspecified; G89.29 Other chronic pain; M79.605 Pain in left leg; M79.604 Pain in right leg; M79.18 Myalgia, other site; F10.20 Alcohol dependence, uncomplicated; F31.9 Bipolar disorder, unspecified; I10 Essential (primary) hypertension; F17.210 Nicotine dependence, cigarettes, uncomplicated; F15.90 Other stimulant use, unspecified, uncomplicated; Z86.718 Personal history of other venous thrombosis and embolism; Z98.890 Other specified postprocedural states; Z88.1 Allergy status to other antibiotic agents
CPT/HCPCS: 99285; 96374; 71045; 80053; 81003; 82550; 83690; 83880; 84484; 85025; 85379; 36415; 93005; J1885

== ENCOUNTER 2022-05-30 07:05 | Emergency (ER) | payer MEDICAID ==
[~2022-05-30] VITALS: Ht 177.8 cm; Wt 133.6 kg
[~2022-05-30 07:05] MED LIST changes: +IBUP-2070 PO
[2022-05-30] MEDS ORDERED: MORPHINE SULFATE 4 MG/ML SYRINGE IVP ONE (08:15)
[2022-05-30] MEDS ORDERED: SODIUM CHLORIDE 0.9% 1,000 ML IV ONE (08:15)
[2022-05-30 08:16] LABS: BASOPHILS % (AUTO) 0.6 % (0.0-2.0); EOSINOPHILS % (AUTO) 2.7 % (1.0-6.0); HEMOGLOBIN 13.2 g/dL (13.5-17.5); LYMPHOCYTES # (AUTO) 1.9 K/uL (1.0-4.8); LYMPHOCYTES % (AUTO) 22.2 % (22.0-44.0); MEAN CORPUSCULAR HEMOGLOBIN 29.4 pg (26.0-34.0); MEAN CORPUSCULAR HGB CONC 33.8 G/dL (31.0-37.0); MEAN CORPUSCULAR VOLUME 87 fL (80-100); MONOCYTES # (AUTO) 0.7 K/uL (0.1-1.0); MONOCYTES % (AUTO) 8.3 % (2.0-9.0); NEUTROPHILS # (AUTO) 5.5 K/uL (1.8-7.7); NEUTROPHILS % (AUTO) 66.2 % (40.0-70.0); PLATELET COUNT (AUTO) 222 K/uL (150-450); RED BLOOD CELL COUNT(AUTO) 4.48 MIL/uL (4.50-5.90); RED CELL DISTRIBUTION WIDTH 14.8 % (11.5-14.5)
[2022-05-30 08:24] LABS: ANION GAP 8 mmol/L (8-16); CALCIUM, TOTAL 8.8 mg/dL (8.8-10.5); CARBON DIOXIDE 26 mmol/L (22-29); CHLORIDE 104 mmol/L (98-107); CREATININE 0.99 mg/dL (0.60-1.30); GLUCOSE,RANDOM 127 mg/dL (70-110); POTASSIUM 4.3 mmol/L (3.5-5.1); SODIUM SERUM 138 mmol/L (136-145); UREA NITROGEN, BLOOD 9 mg/dL (7-18)
[2022-05-30 08:27] LABS: GLOMERULAR FILTR. RATE CALC > 60 mL/min (>60)
[2022-05-30 08:29] LABS: PROTHROMBIN TIME 10.5 SEC (9.4-11.6)
[2022-05-30 08:30] LABS: ALANINE AMINOTRANSFERASE 45 U/L (12-78); ALBUMIN 3.3 g/dL (3.4-5.0); ALKALINE PHOSPHATASE 95 U/L (46-116); ASPARTATE AMINOTRANSFERASE 25 U/L (15-37); BILIRUBIN,TOTAL 0.2 mg/dL (0.1-1.0); TOTAL PROTEIN, SERUM 6.8 g/dL (6.4-8.2)
[2022-05-30] MEDS ORDERED: ACETAMINOPHEN 500 MG TABLET PO ONE (09:00)
[2022-05-30 09:57] LABS: APPEARANCE,URINE CLEAR (CLEAR); BILIRUBIN,URINE NEGATIVE (NEGATIVE); GLUCOSE, URINE (UA) NEGATIVE (NEGATIVE); KETONES,URINE NEGATIVE (NEGATIVE); LEUKOCYTE ESTERASE ,URINE NEGATIVE (NEGATIVE); NITRATE,URINE NEGATIVE (NEGATIVE); OCCULT BLOOD,URINE NEGATIVE (NEGATIVE); PROTEIN,URINE NEGATIVE (NEGATIVE); SPECIFIC GRAVITIY, URINE 1.016 (1.003-1.030); UROBILINOGEN,URINE <=1.0 mg/dL (<=1.0)
[2022-05-30 12:19] VITALS: BP 121/71
== END 2022-05-30 12:21 | disposition home or self-care (01) ==
LOC: EMS 07:06
DX: R10.9 Unspecified abdominal pain (principal); I10 Essential (primary) hypertension; F32.9 Major depressive disorder, single episode, unspecified; F15.90 Other stimulant use, unspecified, uncomplicated; F17.210 Nicotine dependence, cigarettes, uncomplicated; Z88.1 Allergy status to other antibiotic agents; Z79.899 Other long term (current) drug therapy; Z79.82 Long term (current) use of aspirin
CPT/HCPCS: 99285; 74176; 96360; 80053; 81003; 85025; 85610; 85730; 36415; 93005; J7030; J2270

== ENCOUNTER 2022-11-02 02:40 | Emergency (ER) | payer MEDICAID ==
[~2022-11-02] VITALS: Ht 180.3 cm; Wt 138.2 kg
[~2022-11-02 02:40] MED LIST changes: +IBUP-1492 PO; -IBUP-2070 PO
[2022-11-02] MEDS ORDERED: IBUPROFEN 600 MG TABLET PO ONE (03:45)
[2022-11-02 04:26] LABS: BASOPHILS % (AUTO) 0.5 % (0.0-2.0); EOSINOPHILS % (AUTO) 1.5 % (1.0-6.0); HEMATOCRIT 40.2 % (41-53); LYMPHOCYTES # (AUTO) 1.9 K/uL (1.0-4.8); LYMPHOCYTES % (AUTO) 21.9 % (22.0-44.0); MEAN CORPUSCULAR HEMOGLOBIN 28.6 pg (26.0-34.0); MEAN CORPUSCULAR HGB CONC 32.2 G/dL (31.0-37.0); MEAN CORPUSCULAR VOLUME 89 fL (80-100); MONOCYTES # (AUTO) 0.7 K/uL (0.1-1.0); MONOCYTES % (AUTO) 7.6 % (2.0-9.0); NEUTROPHILS # (AUTO) 6.1 K/uL (1.8-7.7); NEUTROPHILS % (AUTO) 68.5 % (40.0-70.0); PLATELET COUNT (AUTO) 213 K/uL (150-450); RED BLOOD CELL COUNT(AUTO) 4.53 MIL/uL (4.50-5.90); RED CELL DISTRIBUTION WIDTH 14.9 % (11.5-14.5)
[2022-11-02 04:34] LABS: ANION GAP 7 mmol/L (8-16); CALCIUM, TOTAL 9.2 mg/dL (8.8-10.5); CARBON DIOXIDE 29 mmol/L (22-29); CHLORIDE 102 mmol/L (98-107); CREATININE 1.03 mg/dL (0.60-1.30); GLUCOSE,RANDOM 116 mg/dL (70-110); POTASSIUM 4.3 mmol/L (3.5-5.1); SODIUM SERUM 138 mmol/L (136-145); UREA NITROGEN, BLOOD 11 mg/dL (7-18)
[2022-11-02 04:40] LABS: ALANINE AMINOTRANSFERASE 40 U/L (12-78); ALBUMIN 3.6 g/dL (3.4-5.0); ALKALINE PHOSPHATASE 93 U/L (46-116); ASPARTATE AMINOTRANSFERASE 25 U/L (15-37); BILIRUBIN,TOTAL 0.2 mg/dL (0.1-1.0); LIPASE 517 U/L (73-393); TOTAL PROTEIN, SERUM 7.2 g/dL (6.4-8.2)
[2022-11-02 04:42] LABS: LACTIC ACID 0.8 mmol/L (0.4-2.0)
[2022-11-02 04:46] LABS: GLOMERULAR FILTR. RATE CALC > 60 mL/min (>60)
[2022-11-02 04:55] VITALS: BP 137/98
[2022-11-02] MEDS ORDERED: FURO-152 PO (05:00)
[2022-11-02] MEDS ORDERED: FUROSEMIDE 20 MG TABLET PO ONE (05:00)
[2022-11-02] MEDS ORDERED: POTA8TAB71 PO (05:00)
[2022-11-02 05:09] LABS: AMPHET/METH SCREEN,URINE POSITIVE (NEGATIVE); BARBITURATE SCREEN, URINE NEGATIVE (NEGATIVE); BENZODIAZEPINES SCREEN,URINE NEGATIVE (NEGATIVE); CANNABINOID SCREEN,URINE NEGATIVE (NEGATIVE); COCAINE SCREEN,URINE NEGATIVE (NEGATIVE); METHADONE SCREEN, URINE NEGATIVE (NEGATIVE); OPIATE SCREEN,URINE NEGATIVE (NEGATIVE)
[2022-11-02 05:13] LABS: PHENCYCLIDINE SCREEN,URINE NEGATIVE (NEGATIVE)
[2022-11-02 05:15] LABS: APPEARANCE,URINE CLEAR (CLEAR); BILIRUBIN,URINE NEGATIVE (NEGATIVE); GLUCOSE, URINE (UA) NEGATIVE (NEGATIVE); KETONES,URINE NEGATIVE (NEGATIVE); LEUKOCYTE ESTERASE ,URINE NEGATIVE (NEGATIVE); NITRATE,URINE NEGATIVE (NEGATIVE); OCCULT BLOOD,URINE NEGATIVE (NEGATIVE); PH,URINE 5.5 (5.0-8.0); PROTEIN,URINE NEGATIVE (NEGATIVE); SPECIFIC GRAVITIY, URINE 1.018 (1.003-1.030); UROBILINOGEN,URINE <=1.0 mg/dL (<=1.0)
[2022-11-02 05:16] LABS: BACTERIA,URINE None Seen /HPF (None Seen); RBC,URINE None Seen /HPF (0-2); SQUAMOUS EPITHELIAL CELL,UR None Seen /LPF (None Seen); WBC,URINE None Seen /HPF (0-5)
[2022-11-02] MEDS ORDERED: IBUP-1554 PO (05:25)
== END 2022-11-02 05:34 | disposition home or self-care (01) ==
LOC: EMS 02:41
DX: R60.0 Localized edema (principal); M79.604 Pain in right leg; F10.20 Alcohol dependence, uncomplicated; F15.10 Other stimulant abuse, uncomplicated; F31.9 Bipolar disorder, unspecified; I10 Essential (primary) hypertension; F17.210 Nicotine dependence, cigarettes, uncomplicated; Z90.49 Acquired absence of other specified parts of digestive tract; Z88.1 Allergy status to other antibiotic agents; Z91.14 Patient's other noncompliance with medication regimen
CPT/HCPCS: 99285; 71045; 80053; 83605; 83690; 84484; 85025; 85379; 36415; 93005; 81001; 80307 ×2; G0480

== ENCOUNTER 2023-01-25 04:29 | Emergency (ER) | payer MEDICAID ==
[~2023-01-25] VITALS: Ht 180.3 cm; Wt 140.8 kg
[~2023-01-25 04:29] MED LIST changes: +FURO-152 PO; +IBUP-1554 PO; +POTA8TAB71 PO
[2023-01-25] MEDS ORDERED: SIMV-46 PO (05:15)
[2023-01-25] MEDS ORDERED: METF-1211 PO (05:15)
[2023-01-25] MEDS ORDERED: GABA-1216 PO (05:15)
[2023-01-25 05:33] LABS: BASOPHILS % (AUTO) 0.5 % (0.0-2.0); EOSINOPHILS % (AUTO) 1.4 % (1.0-6.0); HEMATOCRIT 39.6 % (41-53); HEMOGLOBIN 13.1 g/dL (13.5-17.5); LYMPHOCYTES # (AUTO) 2.6 K/uL (1.0-4.8); LYMPHOCYTES % (AUTO) 23.6 % (22.0-44.0); MEAN CORPUSCULAR HGB CONC 33.1 G/dL (31.0-37.0); MEAN CORPUSCULAR VOLUME 88 fL (80-100); MONOCYTES # (AUTO) 0.9 K/uL (0.1-1.0); MONOCYTES % (AUTO) 8.2 % (2.0-9.0); NEUTROPHILS # (AUTO) 7.4 K/uL (1.8-7.7); NEUTROPHILS % (AUTO) 66.3 % (40.0-70.0); PLATELET COUNT (AUTO) 219 K/uL (150-450); RED BLOOD CELL COUNT(AUTO) 4.52 MIL/uL (4.50-5.90); RED CELL DISTRIBUTION WIDTH 14.7 % (11.5-14.5)
[2023-01-25 05:46] LABS: D-DIMER 0.28 mg/L FEU (0.00-0.50); PROTHROMBIN TIME 10.9 SEC (9.4-11.6)
[2023-01-25 05:49] LABS: ANION GAP 8 mmol/L (8-16); CARBON DIOXIDE 28 mmol/L (22-29); CHLORIDE 103 mmol/L (98-107); CREATININE 0.92 mg/dL (0.60-1.30); GLOMERULAR FILTR. RATE CALC > 60 mL/min (>60); GLUCOSE,RANDOM 106 mg/dL (70-110); POTASSIUM 3.9 mmol/L (3.5-5.1); SODIUM SERUM 139 mmol/L (136-145); UREA NITROGEN, BLOOD 14 mg/dL (7-18)
[2023-01-25 05:55] LABS: ALANINE AMINOTRANSFERASE 35 U/L (12-78); ALBUMIN 3.7 g/dL (3.4-5.0); ALKALINE PHOSPHATASE 93 U/L (46-116); ASPARTATE AMINOTRANSFERASE 26 U/L (15-37); BILIRUBIN,TOTAL 0.2 mg/dL (0.1-1.0); TOTAL PROTEIN, SERUM 7.4 g/dL (6.4-8.2)
[2023-01-25] MEDS ORDERED: KETOROLAC TROMETHAMINE 30 MG/ML VIAL IVP ONE (06:30)
[2023-01-25] MEDS ORDERED: ACETAMINOPHEN 500 MG TABLET PO ONE (06:30)
[2023-01-25] MEDS ORDERED: IOHEXOL 350 MG/ML 100 ML VIAL ONE (06:34)
[2023-01-25] MEDS ORDERED: SODIUM CHLORIDE 0.9% 0 ML ONE (06:35)
[2023-01-25 09:00] VITALS: BP 150/93
[2023-01-25] MEDS ORDERED: DOXY-354 PO (09:42)
== END 2023-01-25 10:09 | disposition home or self-care (01) ==
LOC: EMS 04:30
DX: I80.3 Phlebitis and thrombophlebitis of lower extremities, unspecified (principal); L03.115 Cellulitis of right lower limb; F10.20 Alcohol dependence, uncomplicated; F31.9 Bipolar disorder, unspecified; I10 Essential (primary) hypertension; F17.210 Nicotine dependence, cigarettes, uncomplicated; F12.90 Cannabis use, unspecified, uncomplicated; F15.90 Other stimulant use, unspecified, uncomplicated; Z90.49 Acquired absence of other specified parts of digestive tract; Z88.1 Allergy status to other antibiotic agents
CPT/HCPCS: 80053; 85025; 85379; 85610; 85730; 93971; 99284; J7050; Q9967